=== PATIENT | female | born 1980 | race African-American/Black ===

== ENCOUNTER → 2020-04-13 | Outpatient (CLI) | payer OTHER ==
--- NOTE | 2020-04-13 16:07 | RAD ---
INDICATION: Reason: PELVIC PAIN / Spl. Instructions: / History: COMPARISON: None. TECHNIQUE: Grayscale and color ultrasound images uterus and adnexa. Transabdominal and transvaginal images obtained. Transvaginal images were needed to better visualize structures that were limited on transabdominal imaging. FINDINGS: Uterus: 62 x 47 x 33 mm. Endometrial Stripe: 3 mm. Right Ovary: 15 x 11 x 10 mm. Left Ovary: 15 x 13 x 8 mm. Vascular flow identified to bilateral ovaries. There is some heterogeneity of the myometrium. Vascular flow seen to the bilateral ovaries. IMPRESSION: * Vascular flow seen to the ovaries. * Heterogeneity of the myometrium. Electronically signed by: Filiberto López MD (04/13/2020 4:04 PM) [id number]
== END ==
LOC: US 14:40
PROVIDERS: ATTEND Nurse Practitioner Women's Health
DX: R10.2 Pelvic and perineal pain (principal)
CPT/HCPCS: 76830; 76856

== ENCOUNTER → 2020-04-14 | Outpatient (CLI) | payer OTHER ==
[2020-04-15 00:13] LABS: DHEA SO4 90.4 ug/dL (57.3-279.2); FSH 104.3 mIU/mL (.); LUTEINIZING HORMONE 64.2 mIU/mL (.); PROGESTERONE 0.1 ng/mL (.); PROLACTIN 5.9 ng/mL (4.8-23.3); TESTOSTERONE TOTAL 22 ng/dL (8-48)
[2020-04-15 02:10] LABS: HEMOGLOBIN A1C 5.3 % (4.8-5.6)
== END ==
LOC: LAB 11:34
PROVIDERS: ATTEND Nurse Practitioner Women's Health
DX: N91.2 Amenorrhea, unspecified (principal)
CPT/HCPCS: 36415; 82627; 82670; 83001; 83002; 83036; 83525; 84144; 84146; 84403

== ENCOUNTER → 2020-05-19 | Outpatient (CLI) | payer OTHER ==
[2020-05-19 23:07] LABS: ESTRADIOL LEVEL 40.6 pg/mL (.); LUTEINIZING HORMONE 34.9 mIU/mL (.)
== END ==
LOC: LAB 12:34
PROVIDERS: ATTEND Nurse Practitioner Women's Health
DX: N91.2 Amenorrhea, unspecified (principal)
CPT/HCPCS: 36415; 82670; 83001; 83002